=== PATIENT | male | born 1960 | race Caucasian/White ===

== ENCOUNTER 2016-10-06 09:07 | Day surgery (SDC) | payer BC ==
[~2016-10-06] VITALS: Ht 170.2 cm; Wt 85.5 kg
[2016-10-06] MEDS ORDERED: ISOSORBIDE (10:01)
[2016-10-06] MEDS ORDERED: ASPIRIN (10:01)
[2016-10-06] MEDS ORDERED: CRESTOR (10:01)
[2016-10-06] MEDS ORDERED: METOPROLOL (10:01)
[2016-10-06 10:02] VITALS: Ht 170.2 cm; Wt 85.5 kg
[2016-10-06 10:29] VITALS: BP 113/64; PULSE 49; RESP 15
[2016-10-06] MEDS ORDERED: PROPOFOL 20 ML ONE (10:44)
[2016-10-06] MEDS ORDERED: MIDAZOLAM 1 MG/ML 2 ML INJ ONE (10:44)
[2016-10-06] MEDS ORDERED: LIDOCAINE 2% (SDV) 5 ML INJ ONE (10:44)
[2016-10-06 11:35] VITALS: BP 116/78; PULSE 51; RESP 15
--- NOTE | 2016-10-06 11:51 | GILP ---
DATE OF PROCEDURE: NAME OF PROCEDURES: 1. Esophagogastroduodenoscopy and biopsy. 2. Colonoscopy and biopsy. SURGEON: Ngoc Balderas MD PREOPERATIVE DIAGNOSES: 1. Abdominal pain. 2. Chronic heartburn. 3. Rectal bleeding. POSTOPERATIVE DIAGNOSES: 1. Reflux esophagitis with erosions. 2. Gastritis with erosions. 3. Gastric mucosal biopsies were taken for Helicobacter pylori test. 4. Colonoscopy all the way to the cecum. 5. Small sigmoid colon polyp was removed using the biopsy forceps. 6. Diverticulosis of the colon. 7. Internal hemorrhoids. INDICATION FOR THE PROCEDURE: Mr. Arnaud King is a 56-year-old male patient who had upper abdomin al pain and chronic heartburn not responding to therapy. He also had rectal bleeding. The patient was scheduled for endoscopy and colonoscopy for further evaluation. The procedures and possible complications were well explained to the patient. He understood and con sented to the procedures. DESCRIPTION OF PROCEDURE: Under the influence of anesthesia the gastroscope was carefully introduce d into the esophagus and under direct vision it was advanced to the stomach and through the pylorus, into the duodenal bulb and descending duodenum. FINDINGS: ESOPHAGUS: The patient had reflux esophagitis with erosions. STOMACH: He had gastritis with erosions. Gastric mucosal biopsies were taken for H. pylori test. DUODENUM: Normal. The colonoscope was carefully introduced in the rectum and under direct vision it was advanced all t he way to the cecum. FINDINGS: The patient had a small sigmoid colon polyp and it was removed using the biopsy forceps. He was noted to have diverticulosis of the colon and internal hemorrhoids. He tolerated the procedures very well and there was no complication from the procedures. At the end of the procedures he was awake with stable vital signs and he was discharged home to the care of hi s family. IMPRESSION: Please see postoperative diagnoses. PLAN: 1. Continue Nexium and Zantac. 2. Anusol-HC 2.5% cream at bedtime p.r.n. 3. Await histopathology reports. 4. Next screening colonoscopy in 10 years. Dictated By: NGOC BOURNE/OFE Conf#: [id number] DID#: [id number]
== END 2016-10-06 12:56 | disposition home or self-care (01) ==
LOC: GIL 09:07
PROVIDERS: ATTEND Internal Medicine Gastroenterology
DX: D12.5 Benign neoplasm of sigmoid colon (principal); K21.0 Gastro-esophageal reflux disease with esophagitis; K29.60 Other gastritis without bleeding; K57.90 Diverticulosis of intestine, part unspecified, without perforation or abscess without bleeding; K64.8 Other hemorrhoids; I10 Essential (primary) hypertension; I25.10 Atherosclerotic heart disease of native coronary artery without angina pectoris; E78.5 Hyperlipidemia, unspecified; I25.2 Old myocardial infarction; E66.9 Obesity, unspecified; Z68.29 Body mass index [BMI] 29.0-29.9, adult
CPT/HCPCS: 43239; 45380; 87081; 88305; J2250; Z7610

== ENCOUNTER 2019-01-21 12:01 | Day surgery (SDC) | payer BC ==
[~2019-01-21] VITALS: Ht 170.2 cm; Wt 85.2 kg
[~2019-01-21 12:01] MED LIST: ASA81; ASPIRIN; CRESTOR; ISOSORBIDE; METOPROLOL; NAPROSYN; PREVACID; RANEXA; TYLENOL #4; ZANTAC
[2019-01-21 12:47] VITALS: Ht 170.2 cm; Wt 85.2 kg
[2019-01-21 13:01] VITALS: BP 109/66; PULSE 48; RESP 15
--- NOTE | 2019-01-21 13:08 | PREAC ---
Date/Time of Note Date/Time of Note DATE: 01/21/19 TIME: 13:07 Anesthesia Eval and Record Evaluation Time Pre-Procedure Interview DATE: 01/21/19 TIME: 13:07 Age 58 Sex male NPO: 8 hrs Preoperative diagnosis ABDOMINAL PAIN Planned procedure EGD Past Medical History Past Medical History: Includes Cardio: HTN, Dyslipidemia, CAD Surgery & Anesthesia Issues No known issue Meds Anticoagulation: No Beta Fazal within 24 hr: Yes Reported Medications [[id number]] No Conflict Check 01/21/19 [Tylenol #4] No Conflict Check 01/21/19 [Naprosyn] No Conflict Check 01/21/19 [Ranexa] No Conflict Check 01/21/19 [Zantac] No Conflict Check 01/21/19 [Prevacid ] No Conflict Check 01/21/19 [Aspirin] No Conflict Check 10/06/16 [Crestor] No Conflict Check 10/06/16 [Isosorbide] No Conflict Check 10/06/16 [Metoprolol] No Conflict Check 10/06/16 Meds reviewed: Yes Allergies Coded Allergies: No Known Allergy (Unverified , 01/21/19) Allergies Reviewed: Yes Labs/Studies Labs Reviewed: Reviewed by anesthesiologist test: N/A Pre-procedure Exam Last vitals Vital Signs Date Temp Pulse Resp B/P (MAP) Pulse Ox O2 O2 Flow FiO2 Time Delivery Rate 01/21/19 97.4 48 15 109/66 96 Room Air 13:01 (80) Airway: Adequate mouth opening, Adequate thyromental dist Mallampati: Mallampati I Teeth: Normal Lung: Normal Heart: Normal ASA Physical Status ASA physical status: 3 Emergency: None Planned Anesthetic General/MAC: MAC Planned Pain Management Parenteral pain med Pre-operative Attestations Prior to commencing anesthesia and surgery, the patient was re-evaluated, there was verification of: *The patient's identity *The results of appropriate recent lab work and preoperative vital signs *The above evaluation not changing prior to induction *Anesthetic plan, risk benefits, alternative and complications discussed with patient/family; questions answered; patient/family understands, accepts and wishes to proceed. BON GLOVER Jan 21, 2019 13:08
[2019-01-21] MEDS ORDERED: PROPOFOL 40 ML ONE (13:12)
[2019-01-21] MEDS ORDERED: LIDOCAINE 2% (SDV) 5 ML INJ ONE (13:12)
[2019-01-21 14:00] VITALS: BP 112/72; RESP 15
--- NOTE | 2019-01-21 14:11 | PAC ---
Date/Time of Note Date/Time of Note DATE: 01/21/19 TIME: 14:11 Post-Anesthesia Notes Post-Anesthesia Note Last documented vital signs Vital Signs Date Temp Pulse Resp B/P (MAP) Pulse Ox O2 O2 Flow FiO2 Time Delivery Rate 01/21/19 97.8 15 112/72 99 Room Air 14:00 (85) 01/21/19 97.4 48 13:01 Activity: WNL Respiratory function: WNL Cardiovascular function: WNL Mental status: Baseline Pain reasonably controlled: Yes Hydration appropriate: Yes Nausea/Vomiting absent: Yes BON GLOVER Jan 21, 2019 14:11
[2019-01-21] MEDS ORDERED: LABETALOL HCL 20MG INJ IV PRN (14:30)
[2019-01-21] MEDS ORDERED: ONDANSETRON 4 MG INJ IV PRN (14:30)
[2019-01-21] MEDS ORDERED: EPHEDrine 25 MG/5 ML SYG IV PRN (14:30)
== END 2019-01-21 16:22 | disposition home or self-care (01) ==
LOC: GIL 12:01
PROVIDERS: ATTEND Internal Medicine Gastroenterology
DX: K21.9 Gastro-esophageal reflux disease without esophagitis (principal); K44.9 Diaphragmatic hernia without obstruction or gangrene; K29.60 Other gastritis without bleeding; I10 Essential (primary) hypertension; E78.5 Hyperlipidemia, unspecified
CPT/HCPCS: 43239; Z7610; 88305